=== PATIENT | male | born 1990 | race Caucasian/White ===

== ENCOUNTER → 2016-06-01 | Outpatient (CLI) | payer BC ==
[2016-06-01 14:51] LABS: ALBUMIN 4.1 GM/DL (3.2-5.2); ALBUMIN/GLOBULIN RATIO 0.95 (1.00-1.93); BILIRUBIN,DIRECT 0.2 MG/DL (0.0-0.2); TOTAL PROTEIN 8.4 GM/DL (6.4-8.2)
== END ==
LOC: M LAB 13:36
PROVIDERS: ATTEND Internal Medicine Endocrinology, Diabetes & Metabolism
DX: F64.0 Transsexualism (principal)

== ENCOUNTER 2016-06-11 15:49 | Emergency (ER) | payer BC ==
[~2016-06-11] VITALS: Ht 172.7 cm; Wt 88.5 kg
[2016-06-11] MEDS ORDERED: TESTOSTERONE (15:59)
[2016-06-11 18:01] VITALS: BP 140/81
--- NOTE | 2016-06-11 18:04 | REP ---
Lumbar spine series: Five views. History: Trauma. Injury in a fall on the stairs. Findings: Lumbar vertebral body heights are preserved. Alignment is normal. Pedicles and posterior elements are intact. No fracture or collapse is seen. There is some disc space narrowing at L4-5 consistent with some early degenerative disc disease at this level. Disc spaces are otherwise preserved. Impression: Mild disc space narrowing at L4-5. No traumatic abnormality noted. 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 Signed by Yandel Rizvi MD 06/11/2016 06:30 P
--- NOTE | 2016-06-11 18:05 | REP ---
Left rib series: Five views including PA chest. History: Trauma. Injury in a fall on stairs. Findings: PA chest radiograph is normal. There is no evidence of pneumothorax or hydrothorax. Mediastinum is not widened. Heart size is normal. Pulmonary vasculature is not increased. Multiple views of the left rib cage demonstrate intact left ribs. No rib fracture or incidental bony destructive lesion is seen. No significant change from the October 27, 2009 prior study. Impression: Negative left rib series. Signed by Yandel Rizvi MD 06/11/2016 06:30 P
== END 2016-06-11 18:07 | disposition home or self-care (01) ==
LOC: M ED 17:10
DX: M54.5 Low back pain (principal); F17.200 Nicotine dependence, unspecified, uncomplicated; F33.9 Major depressive disorder, recurrent, unspecified; M51.36 Other intervertebral disc degeneration, lumbar region; Q76.6 Other congenital malformations of ribs; Z79.2 Long term (current) use of antibiotics; Z79.52 Long term (current) use of systemic steroids

== ENCOUNTER → 2016-10-12 | Outpatient (CLI) | payer BC ==
[~2016-10-12] MED LIST: TESTOSTERONE
[2016-10-12 13:36] LABS: BASO % 0.4 % (0.0-1.0); EOS # 0.3 K/mm3 (0.0-0.50); EOS % 2.6 % (0.0-3.0); LARGE UNSTAINED CELL # 0.1 K/mm3 (0.0-0.4); LARGE UNSTAINED CELL % 1.1 % (0.0-4.0); LYMPH # 2.2 K/mm3 (1.5-6.5); LYMPH % 21.2 % (24.0-44.0); MEAN CORPUSCULAR HEMOGLOBIN 27.8 pg (27.0-33.0); MEAN CORPUSCULAR VOLUME 81.8 fl (80.0-96.0); MONO # 0.5 K/mm3 (0.0-0.8); MONO % 4.6 % (0.0-5.0); NEUTROPHILS # 7.4 K/mm3 (1.8-7.7); NEUTROPHILS % 70.2 % (36.0-66.0); PLATELET COUNT, AUTOMATED 378 k/mm3 (150-450); RED CELL DISTRIBUTION WIDTH 12.4 % (11.5-14.5); WHITE BLOOD COUNT 10.5 K/mm3 (4.0-10.0)
[2016-10-12 14:07] LABS: ALBUMIN 3.7 GM/DL (3.2-5.2); ALKALINE PHOSPHATASE 92 U/L (45-117); ALT/SGPT 22 U/L (12-78); ANION GAP 9 MEQ/L (8-16); AST/SGOT 14 U/L (15-37); BLOOD UREA NITROGEN 8 MG/DL (7-18); CALCIUM LEVEL 9.6 MG/DL (8.5-10.1); CARBON DIOXIDE LEVEL 26 MEQ/L (21-32); CHLORIDE LEVEL 105 MEQ/L (98-107); CREATININE FOR GFR 0.71 MG/DL (0.70-1.30); GLOMERULAR FILTRATION RATE > 60.0 (>60); GLUCOSE, FASTING 95 MG/DL (70-105); POTASSIUM SERUM 4.5 MEQ/L (3.5-5.1); SODIUM LEVEL 140 MEQ/L (136-145); TOTAL PROTEIN 7.8 GM/DL (6.4-8.2)
== END ==
LOC: M LAB 12:34
PROVIDERS: ATTEND Internal Medicine Endocrinology, Diabetes & Metabolism
DX: F64.0 Transsexualism (principal)

== ENCOUNTER 2017-06-23 09:27 | Emergency (ER) | payer BC, OTHER ==
[2017-06-23] MEDS: FLUORESCEIN OPHTH 1 MG STRIP OD (09:45)
[2017-06-23] MEDS: TETRACAINE 0.5% OPHTH SOLN 4ML OD (09:45)
[2017-06-23] MEDS: IBUPROFEN 600 MG TAB PO (10:11)
[2017-06-23] MEDS: ERYTHROMYCIN OPHTH OINT OD (10:12)
== END 2017-06-23 10:19 | disposition home or self-care (01) ==
LOC: M ED 09:27
DX: S05.01XA Injury of conjunctiva and corneal abrasion without foreign body, right eye, initial encounter (principal); W22.8XXA Striking against or struck by other objects, initial encounter; Y92.89 Other specified places as the place of occurrence of the external cause; Z88.1 Allergy status to other antibiotic agents; Z79.899 Other long term (current) drug therapy
CPT/HCPCS: 99283

== ENCOUNTER 2017-06-26 13:29 | Emergency (ER) | payer BC, OTHER | END 2017-06-26 15:04 | disposition home or self-care (01) | LOC: M ED 13:29 | DX: S05.01XD Injury of conjunctiva and corneal abrasion without foreign body, right eye, subsequent encounter (principal); X58.XXXD Exposure to other specified factors, subsequent encounter; Y92.018 Other place in single-family (private) house as the place of occurrence of the external cause; F41.9 Anxiety disorder, unspecified | CPT/HCPCS: 99283 ==

== ENCOUNTER 2017-07-29 05:03 | Emergency (ER) | payer BC, OTHER ==
[2017-07-29] MEDS: TETRACAINE 0.5% OPHTH SOLN 4ML OU (05:53)
[2017-07-29] MEDS: FLUORESCEIN OPHTH 1 MG STRIP OD (06:05)
== END 2017-07-29 06:53 | disposition home or self-care (01) ==
LOC: M ED 05:03
DX: H18.831 Recurrent erosion of cornea, right eye (principal); Z79.899 Other long term (current) drug therapy; Z88.1 Allergy status to other antibiotic agents
CPT/HCPCS: 99282

== ENCOUNTER 2017-11-28 08:38 | Day surgery (SDC) | payer BC, OTHER ==
[~2017-11-28 08:38] MED LIST changes: +MIDAZOLAM INJ 2 MG/2 ML VIAL (J2250) As Ordered; -TESTOSTERONE; +fentaNYL 100 MCG/2 ML INJECTION (J3010) As Ordered
[2017-11-28] MEDS ORDERED: LR 1,000 ML IV (08:45)
[2017-11-28] MEDS: PROPARACAINE 0.5% OPHTH SOL 15ML OD (09:28)
[2017-11-28] MEDS: OFLOXACIN 0.3 % (OCUFLOX) OPTH SOL 5ML OD (09:28)
[2017-11-28] MEDS ORDERED: ACETYLCHOLINE OPHTH SOLN 1% 2ML (MIOCHOL-E) As Ordered (10:56)
[2017-11-28] MEDS: mitoMYcin 0.2 MG/VIAL KIT FOR OPHTHALMIC USE (J7315 PER 0.2MG) As Ordered (11:07)
[2017-11-28] MEDS: DUOVISC (0.50ML VISCOAT/0.55ML PROVISC) OPHTH KIT As Ordered (11:07)
[2017-11-28] MEDS: BALANCED SALT IRRIGATION SOLUTION 500ML BAG (FOR OR EYE MACHINE) As Ordered (11:08)
[2017-11-28] MEDS ORDERED: fentaNYL 100 MCG/2 ML INJECTION (J3010) As Ordered (11:11)
[2017-11-28] MEDS ORDERED: MIDAZOLAM INJ 2 MG/2 ML VIAL (J2250) As Ordered (11:11)
[2017-11-28] MEDS ORDERED: DUOVISC (0.50ML VISCOAT/0.55ML PROVISC) OPHTH KIT As Ordered (11:29)
[2017-11-28] MEDS ORDERED: ONDANSETRON 4MG/2ML VIAL (J2405) IV (11:45)
== END 2017-11-28 12:23 | disposition home or self-care (01) ==
LOC: M SDC 08:38
DX: H18.831 Recurrent erosion of cornea, right eye (principal); M12.9 Arthropathy, unspecified; F41.9 Anxiety disorder, unspecified; Z88.8 Allergy status to other drugs, medicaments and biological substances; Z79.899 Other long term (current) drug therapy
CPT/HCPCS: 65435

== ENCOUNTER 2020-05-24 20:42 | Emergency (ER) | payer BC, OTHER ==
[~2020-05-24] VITALS: Ht 172.7 cm; Wt 98.2 kg
[~2020-05-24 20:42] MED LIST changes: +DOXY20TA4 PO; +ERYT5OIN25 OD; +IBUP-1022 PO; +MAGN250T7 PO; -MIDAZOLAM INJ 2 MG/2 ML VIAL (J2250) As Ordered; +MOXI0.5S OU; +MULTCAP12 PO; +TEST200I14 IM; +TESTOSTERONE SQ; +VITATAB11 PO; -fentaNYL 100 MCG/2 ML INJECTION (J3010) As Ordered
[2020-05-24] MEDS ORDERED: DEPA250T2 PO (20:56)
[2020-05-24] MEDS ORDERED: CYMB60CA3 PO (20:56)
[2020-05-24] MEDS ORDERED: METF-838 PO (20:56)
[2020-05-24] MEDS ORDERED: LIDOCAINE 2% MDV 20ML VIAL SC ONE (21:45)
[2020-05-24 22:27] VITALS: BP 131/69
== END 2020-05-24 22:28 | disposition home or self-care (01) ==
LOC: M ED 20:42
DX: S61.441A Puncture wound with foreign body of right hand, initial encounter (principal); W45.8XXA Other foreign body or object entering through skin, initial encounter; Y92.9 Unspecified place or not applicable; Y93.9 Activity, unspecified; Y99.9 Unspecified external cause status; Z79.84 Long term (current) use of oral hypoglycemic drugs; Z79.899 Other long term (current) drug therapy; Z88.8 Allergy status to other drugs, medicaments and biological substances

== ENCOUNTER → 2020-10-05 | Outpatient (CLI) | payer BC, OTHER ==
[~2020-10-05] MED LIST changes: +CYMB60CA3 PO; +DEPA250T2 PO; +METF-838 PO
== END ==
LOC: M LABSMTC 11:15
PROVIDERS: ATTEND Family Medicine
DX: Z11.52 Encounter for screening for COVID-19 (principal)